=== PATIENT | male | born 1985 | race Caucasian/White ===

== ENCOUNTER → 2016-11-03 | Emergency (ER) | payer OTHER ==
[~2016-11-03] VITALS: Ht 172.7 cm; Wt 72.6 kg
[~2016-11-03] MED LIST: ACHD5005 PO; BACL10TA PO; CEPH500C PO; CYCL10TA9 PO; DOCU-165 PO; HDR4T PO; HYDR-2997 PO; HYDR-34; HYDR-757 PO; HYDR1TAB66 PO; IBP800T PO; IBUP-15; IBUP-1773 PO; IBUP-1780 PO; IBUP800T26 PO; LIDOCAINE/EPI 1%-1:100,000 (XYLOCAINE) 20ML INJ ONE; LIDOCAINE/EPI 1%-1:100,000 (XYLOCAINE) 20ML ONE; LOSA25TA5 PO; METO50TA7 PO; MRTZ30T1 PO; NAPR-243 PO; NAPR250T PO; ONDA4TAB8 PO; ONDAN4ODT PO; OXYC-109 PO; OXYC-12; OXYC-272 PO; PNT40TEC PO; POLY17PO23 PO; SIME180C20 PO; SULF1TAB35 PO; TRAM-21 PO; TRM50T PO; fLEXERIL
[2016-11-03 10:20] VITALS: BP 157/113
--- NOTE | 2016-11-03 10:30 | ED Upper Extremity ---
General Stated Complaint: LEFT THUMB LAC History of Present Illness Time seen by provider: 10:24 Initial Comments PT C/O LACERATION TO LEFT PALM STATES HE WAS WORKING ON HIS VEHICLE AND WRENCH SLIPPED AND HE CUT HIS HAND ON THE FAN OCCURRED AT HOME JUST PRIOR TO ARRIVAL NO PARESTHESIAS OR MOTOR DEFICITS PT IS RIGHT HANDED NO PRIOR INJURY TO LEFT HAND Allergies and Home Medications Allergies Coded Allergies: Penicillins (Unverified Allergy, Mild, 01/07/09) amoxicillin (Verified Allergy, Mild, 08/29/09) azithromycin (Unverified Allergy, Mild, 01/07/09) Uncoded Allergies: SILK TAPE (Allergy, Mild, HIVES, 01/28/10) Home Medications Hydrocodone/Acetaminophen 1 Each Tablet, 2 EACH PO Q4H PRN for PAIN, #20 Prescribed by: JARON BELL MD on 05/30/15 1714 Ibuprofen 600 Mg Tablet, 600 MG PO Q6H PRN for PAIN, #60 Prescribed by: ARY CARDENAS on 05/29/15 0900 Ibuprofen 800 Mg Tablet, 800 MG PO Q8H PRN for PAIN, #14 Prescribed by: JANNETTE BUCKLEY on 02/24/16 1634 Sulfamethoxazole/Trimethoprim 1 Each Tablet, 1 EACH PO BID, #14 Prescribed by: JANNETTE BUCKLEY on 02/24/16 1634 Sulfamethoxazole/Trimethoprim 1 Each Tablet, 1 EACH PO BID, #14 Ref 0 Prescribed by: SEE BOYER on 03/03/16 1614 Sulfamethoxazole/Trimethoprim 1 Each Tablet, 1 EACH PO BID, #20 Prescribed by: NOE BYA on 11/03/16 1121 [fLEXERIL] , 10 BID, #20 Prescribed by: ARY CARDENAS on 05/29/15 0900 Constitutional: no symptoms reported Musculoskeletal: see HPI Skin: see HPI Psychiatric/Neurological: No Symptoms Reported Past Jlhvesy-Vsajqt-Etampd Hx Patient Social History Alcohol Use: Occasionally Uses Recreational Drug Use: Yes (THC, METH USE IN PAST, DENIES IV USE) Smoking Status: Current Everyday Smoker (1/2 PPD) Recent Foreign Travel: No Contact w/Someone Who Travel: No Recent Hopitalizations: No Immunizations Up To Date Tetanus Booster (TDap): Less than 5yrs (03/03/16) Surgeries HX Surgeries: Yes (3 RIGHT SHOULDER AND 2 LEFT SHOULDER, [facility].HERNIA, DENTAL) Surgeries: Abdominal, Orthopedic Respiratory Hx Respiratory Disorders: No Cardiovascular Hx Cardiac Disorders: Yes Cardiac Disorders: Hypertension Neurological Hx Neurological Disorders: No Reproductive System Hx Reproductive Disorders: No Genitourinary Hx Genitourinary Disorders: Yes Genitourinary Disorders: Kidney Stones Gastrointestinal Hx Gastrointestinal Disorders: No Musculoskeletal Hx Musculoskeletal Disorders: Yes (LOOSE JOINTS) Endocrine Hx Endocrine Disorders: No HEENT HX ENT Disorders: No Cancer Hx Cancer: No Psychosocial Hx Psychiatric Problems: No Integumentary HX Skin/Integumentary Disorder: Yes (RASH ON BACK FOR OVER A YEAR) Blood Transfusions Hx Blood Disorders: No Family Medical History Significant Family History: No Pertinent Family Hx Family Medial History: FH: hemophilia G8 SISTER FH: lung cancer 19 MOTHER Hypertension 19 MOTHER G8 SISTER Raynaud's syndrome 19 FATHER Physical Exam Vital Signs Vital Sign - Last 12Hours 11/03/16 10:20 Temp 99.1 Pulse 70 Resp 16 B/P (MAP) 157/113 Pulse Ox 99 Capillary Refill : General Appearance: WD/WN, no apparent distress, other Hand: Left (LEFT PALM WITH 4 CM LACERATION , SLIGHTLY IRREGULAR. NO ACTIVE BLEEDING. MOTOR /SENSORY/VASCULAR INTACT. NO TENDON INVOLVEMENT), laceration Neurologic/Tendon: normal sensation, normal motor functions, normal tendon functions Neurologic/Psychiatric: heating and ventilating drafter II-XII nml as tested, no motor/sensory deficits, alert, normal mood/affect, oriented x 3 Skin: normal color, warm/dry, other ( ABOVE) Laceration Repair : Other Wound Location LEFT PALM Wound Length (cm): 4 Wound's Depth, Shape: irregular (SLIGHTLY), sub Q Wound Explored: contaminated (WITH DIRT, GREASE, GRIME) Betadine Prep?: No (BETASEPT, SALINE AND SURGICAL SCRUB SPONGES) Anesthesia: Lidocaine w/ Epi (1%) Suture: Ethlion Suture Size: 4-0 Number of Sutures: 7 Sterile Dressing Applied?: Yes Progress ALUMINUM FOAM VOLAR SPLINT APPLIED Progress/Results/Core Measures Results/Orders My Orders Orders - NOE BAY DO Lidocaine/Epi 1% 1:100,000 (Xylocaine /E (11/03/16 10:45) Lidocaine/Epi 1% 1:100,000 (Xylocaine /E (11/03/16 10:32) Splint Application Short Arm (11/03/16 11:21) Medications Given in ED Current Medications Medications Dose Ordered Sig/Chavez Route Start Time Stop Time Status Last Admin Dose Admin Lidocaine/ Epinephrine 20 ml ONCE ONCE INJ 11/03/16 10:45 11/03/16 10:46 DC 11/03/16 10:42 10 ML Vital Signs/I&O Vital Sign - Last 12Hours 11/03/16 10:20 Temp 99.1 Pulse 70 Resp 16 B/P (MAP) 157/113 Pulse Ox 99 Departure Impression Impression: Primary Impression: Laceration of left palm Disposition: HOME, SELF-CARE Condition: Stable Departure-Patient Inst. Referrals: [facility] (PCP/Family) Primary Care Physician Patient Instructions: Laceration Repair With Stitches (DC) Add. Discharge Instructions: LEAVE DRESSING IN PLACE FOR 24 HOURS, THEN CLEAN TWICE A DAY WITH ANTIBACTERIAL SOAP AND WATER ON A Q-TIP, APPLY FRESH DRESSING WEAR SPLINT AT ALL TIMES TYLENOL AND MOTRIN NEEDED FOR PAIN SUTURES OUT IN 10-14 DAYS--RETURN TO ER FOR REMOVAL Scripts Sulfamethoxazole/Trimethoprim (Bactrim Ds Tablet) 1 Each Tablet 1 EACH PO BID, #20 TAB Prov: NOE BAY DO 11/03/16 Images Extremities-Upper 1 - Laceration NOE BAY DO Nov 03, 2016 10:30
== END | disposition home or self-care (01) ==
LOC: EDUNIT# 10:20 → ER 10:22
DX: S61.412A Laceration without foreign body of left hand, initial encounter (principal); I10 Essential (primary) hypertension; F17.210 Nicotine dependence, cigarettes, uncomplicated; W22.8XXA Striking against or struck by other objects, initial encounter; Y92.015 Private garage of single-family (private) house as the place of occurrence of the external cause; Y99.8 Other external cause status
CPT/HCPCS: 12042

== ENCOUNTER 2016-11-17 12:13 | Emergency (ER) | payer OTHER ==
[~2016-11-17] VITALS: Ht 172.7 cm; Wt 72.6 kg
[~2016-11-17 12:13] MED LIST changes: -LIDOCAINE/EPI 1%-1:100,000 (XYLOCAINE) 20ML INJ ONE; -LIDOCAINE/EPI 1%-1:100,000 (XYLOCAINE) 20ML ONE
[2016-11-17 12:21] VITALS: BP 149/98
== END 2016-11-17 12:23 | disposition home or self-care (01) ==
LOC: EDUNIT# 12:13 → ER 12:16
DX: S61.412D Laceration without foreign body of left hand, subsequent encounter (principal)

== ENCOUNTER → 2017-01-24 | Outpatient (CLI) | payer OTHER ==
--- NOTE | 2017-01-24 09:28 | Diagnostic Imaging Report ---
PROCEDURE: MRI right joint upper extremity without contrast. TECHNIQUE: Multiplanar, multisequence MR imaging of the right shoulder was performed without contrast. COMPARISON: None available. INDICATION: Right shoulder pain with limited range of motion. Prior shoulder surgery. FINDINGS: Rotator cuff: No rotator cuff tear or muscle atrophy. No significant tendinopathy of the cuff musculature. Glenoid labrum: Surgical changes from prior superior labral repair with multiple suture anchors in the superior glenoid. There may be also be anchor tract within the anterior inferior glenoid rim. By non-arthrogram imaging, there is no displaced glenoid labral tear. However, postoperative labrum is much better evaluated by MR arthrogram. Long head of biceps: The long head of the biceps is normal in morphology and position. No tear or significant tendinopathy. Bones and cartilage: No fracture, stress fracture or osteonecrosis. No high-grade chondromalacia of the glenohumeral joint. The acromioclavicular joint is normal alignment without significant degenerative change. Soft tissues: No glenohumeral joint effusion. No MRI findings to suggest adhesive capsulitis. No subacromial/subdeltoid bursitis. IMPRESSION: 1. Prior glenoid labral repair. No recurrent displaced labral tear by non-arthrogram imaging. However, postoperative labrum is much better evaluated by MR arthrogram. 2. Normal rotator cuff. 3. Long head of biceps is also normal. Dictated by: Dictated on workstation # [id number]
== END ==
LOC: RAD 07:55
PROVIDERS: ATTEND Nurse Practitioner Family
DX: M25.511 Pain in right shoulder (principal)
CPT/HCPCS: 73221

== ENCOUNTER → 2017-10-20 | Outpatient (CLI) | payer OTHER ==
--- NOTE | 2017-10-20 15:36 | Diagnostic Imaging Report ---
INDICATION: Acute shoulder pain. COMPARISON: None. FINDINGS: Three views of right shoulder are obtained. No acute fracture, malalignment or osseous destructive process is seen. There is mild degenerative change of glenohumeral joint with joint space narrowing and spurring. There is mild subchondral cystic change and irregularity of the glenoid. Soft tissue calcification adjacent to the greater tuberosity probably related to calcific tendinitis. IMPRESSION: Mild degenerative changes of the glenohumeral joint with findings of calcific tendinitis. Dictated by: Dictated on workstation # [id number]
== END ==
LOC: RAD 14:24
PROVIDERS: ATTEND Nurse Practitioner Family
DX: M19.011 Primary osteoarthritis, right shoulder (principal); M75.91 Shoulder lesion, unspecified, right shoulder
CPT/HCPCS: 73030

== ENCOUNTER → 2017-11-07 | Outpatient (CLI) | payer OTHER ==
[~2017-11-07] VITALS: Ht 172.7 cm; Wt 72.6 kg
[~2017-11-07] MED LIST changes: +CATHETER FLUSH 10 ML SYR IVP PRN; +GADOBUTROL 7.5 MMOL/7.5 ML (GADAVIST) VIAL IV ONE; +IOHEXOL 300 MG/ML 30 ML (OMNIPAQUE 300) VIAL IV ONE; +LIDOCAINE 1% INJ 50 ML (XYLOCAINE) VIAL IJ ONE
[2017-11-07 12:58] VITALS: BP 131/81
[2017-11-07 13:55] VITALS: BP 119/71
--- NOTE | 2017-11-07 15:29 | Diagnostic Imaging Report ---
INDICATION: Right shoulder pain. TECHNIQUE: The patient was brought to the procedure room and placed on the table in the supine position. The skin of the right shoulder was prepped and draped in the usual sterile fashion. A small amount of 1% lidocaine was utilized for local anesthesia. A 22-gauge needle was advanced into the right shoulder at the rotator interval. A 15 mL solution of iodinated contrast, normal saline, and gadolinium was injected under fluoroscopic observation. The needle was withdrawn and hemostasis was obtained. A total of 25 seconds of fluoroscopic time was utilized. A preprocedure image does show a small well corticated osseous density adjacent to the greater tuberosity, likely owing to calcific tendinitis of the rotator cuff. No other abnormalities are seen. IMPRESSION: 1. Fluoroscopically assisted right shoulder injection of gadolinium contrast solution for MRI. 2. Findings are suggestive of calcific tendinitis of the rotator cuff. Dictated by: Dictated on workstation # [id number]
--- NOTE | 2017-11-07 15:32 | Diagnostic Imaging Report ---
MRI RT UPPER EXT JOINT WITH TECHNIQUE: Multiplanar, multisequence MR imaging of the right shoulder was performed after direct intra-articular contrast administration. COMPARISON: Non-arthrogram shoulder MRI from 01/24/2017. INDICATION: Right shoulder pain status post labral repair. FINDINGS: Rotator cuff: No rotator cuff tear or muscle atrophy. No evidence of denervation injury. Glenoid labrum: Glenohumeral joint is well distended with intra-articular contrast. There is a prior superior labral repair with an anchor present. Contrast undermines the superior labrum suggestive of a recurrent nondisplaced tear at the chondrolabral junction. Long head of biceps: Long head of biceps is normally positioned within the bicipital groove. The intracapsular segment is intact. Bones and cartilage: Humeral head is normal in morphology without fracture or focal osseous lesion. No glenohumeral chondromalacia. The acromioclavicular joint is normal in alignment without significant degenerative change. Soft tissues: No proliferative synovitis or loose bodies within the glenohumeral joint. No MRI findings to suggest adhesive capsulitis. No fluid or inflammatory like signal within the subacromial/subdeltoid space to indicate bursitis. IMPRESSION: 1. Recurrent nondisplaced superior labral tear at the chondrolabral junction. No paralabral cyst. 2. Long head of the biceps remains intact, and there is no propagation of the labral tear into the biceps anchor. 3. Normal rotator cuff. Dictated by: Dictated on workstation # [id number]
== END ==
LOC: RAD 12:56
PROVIDERS: ATTEND Orthopaedic Surgery
DX: S43.491A Other sprain of right shoulder joint, initial encounter (principal); M24.411 Recurrent dislocation, right shoulder; Z98.890 Other specified postprocedural states
CPT/HCPCS: 23350; 73040; 73222

== ENCOUNTER 2017-12-29 16:27 | Outpatient (RCR) | payer OTHER ==
[~2017-12-29 16:27] MED LIST changes: -CATHETER FLUSH 10 ML SYR IVP PRN; -GADOBUTROL 7.5 MMOL/7.5 ML (GADAVIST) VIAL IV ONE; -IOHEXOL 300 MG/ML 30 ML (OMNIPAQUE 300) VIAL IV ONE; -LIDOCAINE 1% INJ 50 ML (XYLOCAINE) VIAL IJ ONE
== END 2018-01-23 17:00 | disposition home or self-care (01) ==
PROVIDERS: ATTEND Orthopaedic Surgery
DX: S43.431D Superior glenoid labrum lesion of right shoulder, subsequent encounter (principal)

== ENCOUNTER → 2020-12-23 | Outpatient (CLI) | payer OTHER ==
[~2020-12-23] MED LIST changes: +HOLD METFORMIN - RECEIVED CONTRAST 20 ML VIAL IV SCH; +HYDR-4226 PO; -HYDR-757 PO; +IOHEXOL 350 MG/ML 100 ML (OMNIPAQUE 350) VIAL IV ONE; +NS 100 ML (IVPB) BAG IV ONE
--- NOTE | 2020-12-23 19:19 | Diagnostic Imaging Report ---
PROCEDURE: CT neck soft tissue with contrast. TECHNIQUE: Multiple contiguous axial images were obtained through the neck after the administration of contrast. Auto Exposure Controls were utilized during the CT exam to meet ALARA standards for radiation dose reduction. INDICATION: Lump left side of the neck and difficulty swallowing. No prior studies are available for comparison. Posterior nasopharynx and oropharynx are unremarkable. Parapharyngeal fat planes are unremarkable. Epiglottis and larynx are unremarkable. No thyroid masses are seen. Submandibular and parotid glands appear to be symmetric bilaterally. There are normal-sized jugulodigastric lymph nodes and posterior cervical chain lymph nodes. No definite pathologically enlarged lymph nodes are seen. There is no supraclavicular lymphadenopathy. Upper lung rodriguez appear clear. IMPRESSION: There are some normal-sized lymph nodes in the cervical chain bilaterally. No definite cervical lymphadenopathy is identified. Dictated by: Dictated on workstation # [id number]
== END ==
LOC: RAD 17:59
PROVIDERS: ATTEND Internal Medicine
DX: R59.0 Localized enlarged lymph nodes (principal)
CPT/HCPCS: 70491

== ENCOUNTER 2022-06-09 05:32 | Outpatient (CLI) | payer OTHER ==
[~2022-06-09] VITALS: Ht 172.7 cm; Wt 72.0 kg
[~2022-06-09 05:32] MED LIST changes: -HOLD METFORMIN - RECEIVED CONTRAST 20 ML VIAL IV SCH; -IOHEXOL 350 MG/ML 100 ML (OMNIPAQUE 350) VIAL IV ONE; -NS 100 ML (IVPB) BAG IV ONE; -SULF1TAB35 PO; +SULF1TAB38 PO
[2022-06-10] MEDS ORDERED: IBUP-1773 PO (12:54)
[2022-06-10] MEDS ORDERED: ACET325T38 PO (12:54)
[2022-06-10] MEDS ORDERED: LISI10TA25 PO (12:54)
== END 2022-06-10 12:58 | disposition home or self-care (01) ==
LOC: PREOP 05:32
PROVIDERS: ATTEND Surgery
DX: Z01.818 Encounter for other preprocedural examination (principal)

== ENCOUNTER 2022-06-16 05:56 | Day surgery (SDC) | payer OTHER ==
[2022-06-16] VITALS (10 sets, daily range): BP systolic 97–125; BP diastolic 64–90
[~2022-06-16] VITALS: Ht 172 cm; Wt 72.0 kg
[~2022-06-16 05:56] MED LIST changes: +ACET325T38 PO; +LISI10TA25 PO
[2022-06-16] MEDS ORDERED: CLINDAMYCIN 600 MG/50 ML IVPB 50 ML IV ONE (06:15)
[2022-06-16] MEDS: LACTATED RINGERS 1,000 ML IV PRN ×2 (06:28→08:54)
[2022-06-16] MEDS ORDERED: BUPIVACAINE 0.5% 30 ML (SENSORCAINE) VIAL ONE (07:04)
[2022-06-16] MEDS ORDERED: fentaNYL INJ 100 MCG/2 ML AMP ONE (07:35)
[2022-06-16] MEDS ORDERED: MIDAZOLAM 2 MG/2 ML (VERSED) VIAL ONE (07:35)
--- NOTE | 2022-06-16 08:24 | Progress Note-Pre Operative ---
Pre-Operative Progress Note Date of Available H&P: Jun 01, 2022 Date H&P Reviewed: Jun 16, 2022 Time H&P Reviewed: 08:21 History & Physical: H&P Reviewed, Patient Examed, No changes noted Pre-Operative Diagnosis: Left Inguinal hernia, possible right CELENA COHN DO Jun 16, 2022 08:23
[2022-06-16] MEDS ORDERED: LIDOCAINE PF 2% 5 ML (XYLOCAINE) VIAL ONE (09:23)
[2022-06-16] MEDS ORDERED: proPOfol 200 MG/20 ML (DIPRIVAN) VIAL IV ONE (09:23)
[2022-06-16] MEDS ORDERED: ROCURONIUM 10 MG/ML 5 ML SYRINGE IV ONE ×2 (09:23→09:49)
[2022-06-16] MEDS ORDERED: ONDANSETRON 4 MG/2 ML (SDV) Z0FRAN ONE (09:23)
[2022-06-16] MEDS ORDERED: NEOSTIGMINE (BLOXIVERZ ) 1 MG/1ML 10 ML VIAL ONE (09:49)
[2022-06-16] MEDS ORDERED: GLYCOPYRROLATE 0.2 MG/ML (ROBINUL) 2 ML VIAL ONE (09:49)
--- NOTE | 2022-06-16 09:57 | Progress Note-Post Operative ---
Post-Operative Progess Note Surgeon (s)/Hatchery Helper (s) Surgeon CELENA COHN DO Hatchery Helper: Bello Pre-Operative Diagnosis Left Inguinal hernia, possible right Post-Operative Diagnosis Left direct inguinal hernia Procedure & Operative Findings Date of Procedure 06/16/22 Procedure Performed/Findings Laparoscopic Left inguinal herniarrapy with mesh placement - Robotic After informed consent was obtained, the patient was brought to the operating room and placed on the operating table in a supine position. He was sterilely prepped and draped in a normal fashion. Local lidocaine was used to infiltrate the skin above the umbilicus. I made an incision with #11 blade, carried down to the skin into subcutaneous tissue and then deepened down the subcutaneous tissue with Bovie electrocautery down to the fascia. Fascia was incised with Bovie electrocautery and bluntly entered the abdomen, swept a finger around, placed 0 Vicryl hivujz-cl-dwoew suture and placed limited trocar port under direct visualization. Created pneumoperitoneum, able to visualize the hernia and took a picture of this and then placed two 8 mm ports about 10 cm on either side of the midline port using a local lidocaine, #11 blade for stab incision and then advanced the robotic port under direct visualization. Once this was in, I then placed the patient in Trendelenburg and then placed the working instruments, the fenestrated bipolar on the left and the scissors on the right. Looked on the left side and saw the direct inguinal hernia. Nothing seen on the right side. Next, I came across the peritoneum approximately 8 cm away from the hernia defect, going across laterally starting medial at the median umbilical ligament and cutting laterally toward the ASIS. I then carefully dissected the visceral peritoneum away and down in the midline, went through the parietal side and dissected down to the pubic tubercle, dissecting this down carefully pushing the peritoneum away, I was able to then visualize the pubic tubercle and Ankit's ligament. I went 2 cm posterior and at this point, we then had a critical view of the dissection, able to dissect 2 cm across the midline to the right side, 2 cm posterior to the Ankit's ligament, able to then parietalize the vas deferens and spermatic vessels right at the groove between Ankit's and iliac vein and able to dissect, make sure there was no peritoneum between those two, able to see the indirect hernia space, looked at the femoral space (no hernia seen) and took a picture. Then I carefully teased out the hernia sac from the direct hernia space. I could visualize the entire area and took another picture. Next I looked on the cord and cord structures. There was no cord lipoma. I could clearly see the inguinal canal and no real defect into the indirect space. Next I carried the posterior lateral dissection all the way out and then placed a 10 x 16 Midwieght Bard 3DMax mesh. It laid in nicely, covered the hernia defect and the rest of the area. It was above the peritoneum, sutured it at the pubic tubercle with a 3-0 Vicryl suture and tied this off. This appeared to lay in very nicely. I also tied one suture out laterally to hold it down. I then brought down the pneumoperitoneum to about 8 mm Hg and then started closing the peritoneum. Started medially and used a 2-0 V-lock barbed suture to start a running stitch to close the peritoneum. This was closed nicely, took a picture of the closure. There was a small hole in the peritoneum that I closed with a simple 3-0 Vicryl stitch. At this point, then removed all of the needles; had switched to a suture xm1 tank driver from the scissors. The patient was then placed back supine, removed all ports under direct visualization, allowed pneumoperitoneum to escape and then closed the supraumbilical incision, closing the fascia with 0 Vicryl suture previously placed. Copiously irrigated all incisions and then closed the two small 8 mm incisions with two interrupted 4-0 undyed Monocryl subcuticular stitches and closed the supraumbilical incision with three interrupted undyed Monocryl subcuticular stitch. Area was cleaned and dried. Dermabond was placed. The patient tolerated the procedure. The sponge, instrument and needle counts were correct at the end of the case. Dr. Monsalve assisted during this surgery by making incisions, closing incisions, helping to identify anatomy and passing/retrieving suture and needles. Anesthesia Type GET Estimated Blood Loss Estimated blood loss (mL): scant Specimens/Packing Specimens Removed none CELENA COHN DO Jun 16, 2022 09:57
[2022-06-16] MEDS ORDERED: ACHD5005 PO (09:58)
--- NOTE | 2022-06-16 09:59 | Discharge Inst-Surgical ---
Discharge Inst-Surgical Depart Medication/Instructions New, Converted or Re-Newed RX: Transmitted to Pharmacy Patient Instructions Follow up Appt: Make appointment for 1 week. [phone] Instructions: No lifting greater than 20 pounds. No strenuous activity. May shower in 24 hours, no tub bath or soaking. Use incentive spirometer at home as directed. No Smoking Skin/Wound Care: May remove bandages in am. You need to leave the Dermabond on incision it will fall off on it's own. Symptoms to Report: Appetite Changes, Extremity Discoloration, Numbness/Tingling, Swelling Increased, Bleeding Excessive, Eyesight Changes, Pain Increased, Urine Color Change, Constipation(Persistent), Fever over 101 degree F, Pain/Pressure in chest, Urinating Difficulty, Cough Up/Vomit Blood, Heart Beat Irreg/Pounding, Pain/Pressure in jaw, Cramps in feet or legs, Lightheadedness, Pain/Pressure in shoulder, Diarrhea(Persistent), Memory Changes Suddenly, Questions/Concerns, Weight gain consecutive days, Dizziness/Fainting, Nausea/Vomiting, Shortness of Breath, Weight gain over 2 pounds If questions or concerns contact your physician Or seek help at emergency department. Activity Activity as Tolerated: Yes Activity Instructions: Avoid Stress to Incision Driving Instructions: No Driving/Refer to Dr. Marquez Discharge Diet: No Restrictions Diet After 24 Hours: Clear Liquid if Nauseous If Any Problems/Questions/Issu: Contact Your Physician, Go to Emergency Room Skin/Wound Care Infection Signs and Symptoms: Increased Redness, Foul Odor of Wound, Increased Drainage, Skin Itchy or Has a Rash, Increased Swelling, Temperature Above 101 F Wound Care Comment: heating pad to shoulder or neck tonight for pain Bathing Instructions: Shower Stitches/Brodhead/Dermabond Dis: Dermabond Ice Pack: Ice On and Off Site CELENA COHN DO Jun 16, 2022 09:59
[2022-06-16] MEDS ORDERED: KETOROLAC 30 MG/ML VIAL ONE (10:00)
--- NOTE | 2022-06-16 10:09 | Anesthesia-General Post-Op ---
General Patient Condition Mental Status/LOC: Same as Preop Cardiovascular: Satisfactory Nausea/Vomiting: Absent Respiratory: Satisfactory Pain: Controlled Complications: Absent Post Op Complications Complications None Follow Up Care/Instructions Patient Instructions None needed. Anesthesia/Patient Condition Patient Condition Patient is doing well, no complaints, stable vital signs, no apparent adverse anesthesia problems. No complications reported per nursing. PAT JEFFREY CRNA Jun 16, 2022 10:09
[2022-06-16] MEDS ORDERED: fentaNYL INJ 100 MCG/2 ML AMP IVP ONE (10:15)
[2022-06-16] MEDS ORDERED: SEVOFLURANE (ULTANE) 15 ML INHAL SOLN ONE (10:15)
[2022-06-16] MEDS ORDERED: ONDANSETRON 4 MG/2 ML (SDV) Z0FRAN IVP PRN (10:15)
[2022-06-16] MEDS ORDERED: morphine INJ 10 MG/ML 1ML (SYR OR VIAL) IVP ONE (10:15)
[2022-06-16] MEDS ORDERED: HYDROcodone/APAP 5 MG/325 MG (LORTAB) TAB PO ONE (11:00)
[2022-06-16] MEDS ORDERED: HYDROcodone/APAP 5 MG/325 MG (LORTAB) TAB ONE (11:00)
== END 2022-06-16 11:50 | disposition home or self-care (01) ==
LOC: SDC 05:56
PROVIDERS: ATTEND Surgery
DX: K40.90 Unilateral inguinal hernia, without obstruction or gangrene, not specified as recurrent (principal)
CPT/HCPCS: 49650; 87081; C1781

== ENCOUNTER 2022-08-23 05:49 | Emergency (ER) | payer OTHER ==
--- NOTE | 2022-08-23 06:08 | ED Chest Pain ---
General Chief Complaint: Chest Wall Stated Complaint: RIGHT SIDE CHEST/BACK PAIN Source: patient Exam Limitations: no limitations (MAYANK EDWARDS MD) History of Present Illness Date Seen by Provider: Aug 23, 2022 Time Seen by Provider: 05:55 Initial Comments Patient is a 37-year-old male who presents to the emergency room with a chief complaint of right upper chest wall pain. Patient states he has had this pain continuously for about 2 weeks. It is worse when he takes a deep breath and more "sharp". He denies any associated symptoms of fevers, chills, congestion. No cough. No nausea vomiting or diarrhea. No diaphoresis associated. Movement also makes the pain a little worse. He has been taking ibuprofen and Tylenol. His last dose of Tylenol was yesterday evening at 8 PM 2 extra strength. No improvement. He has had multiple shoulder surgeries on each shoulder. He gets injections to his shoulders through Dr. VIGIL's office. No family history of coronary artery disease. He is a long-term smoker, 1 pack/day. He takes medication for hypertension. The pain does not radiate. It is not exacerbated by walking or exertion. It does radiate into his posterior right shoulder. Timing/Duration: other (2 weeks) Severity/Quality: sharp Location: other (right upper chest wall) Radiation: back (right shoulder) ASA po FINISH MENDER: No NTG SL FINISH MENDER: No Associated Symptoms: denies symptoms (MAYANK EDWARDS MD) Allergies and Home Medications Allergies Coded Allergies: Penicillins (Unverified Allergy, Mild, RASH, 06/10/22) amoxicillin (Verified Allergy, Mild, RASH, 06/10/22) azithromycin (Unverified Allergy, Mild, RASH, 06/10/22) Uncoded Allergies: SILK TAPE (Allergy, Mild, HIVES, 01/28/10) Patient Home Medication List Home Medication List Reviewed: Yes (MAYANK EDWARDS MD) Acetaminophen (Tylenol) Unknown Strength Tablet, Unknown Dose PO, (Reported) Entered as Reported by: LARRY FLORES on 06/10/22 1254 Hydrocodone Bit/Acetaminophen (HYDROcodone/APAP 5 MG/325 MG TAB) 1 Tab Tab, 1 T AB PO Q8H PRN for PAIN-MODERATE (5-7) Prescribed by: CELENA COHN on 06/16/22 0958 Ibuprofen (Ibuprofen) Unknown Strength Tablet, Unknown Dose PO Q6H PRN for PAIN- MILD, (Reported) Entered as Reported by: LARRY FLORES on 06/10/22 1254 Lisinopril (Lisinopril) 10 Mg Tablet, 10 MG PO DAILY, (Reported) Entered as Reported by: LARRY FLORES on 06/10/22 1254 Prednisone (Prednisone) 20 Mg Tab, 40 MG PO DAILY Prescribed by: SCOT LUND on 08/23/22 0720 Tramadol HCl (Tramadol HCl) 50 Mg Tablet, 50 MG PO Q6H PRN for PAIN-BREAKTHROUGH Prescribed by: SCOT LUND on 08/23/22 0720 Review of Systems Review of Systems Constitutional: see HPI EENTM: No Symptoms Reported Respiratory: No Symptoms Reported Cardiovascular: Chest Pain Gastrointestinal: No Symptoms Reported Genitourinary: No Symptoms Reported Musculoskeletal: joint pain (right shoulder) Skin: no symptoms reported Psychiatric/Neurological: No Symptoms Reported (MAYANK EDWARDS MD) All Other Systems Reviewed Negative Unless Noted: Yes (MAYANK EDWARDS MD) Past Sytavir-Wkzdet-Eextil Hx Patient Social History Tobacco Use?: Yes Tobacco type used: Cigarettes Smoking Status: Current Everyday Smoker Use of E-Cig and/or Vaping dev: No Substance use?: Yes Substance type: Marijuana Substance frequency: Couple times a week Alcohol Use?: No Pt feels they are or have been: No (MAYANK EDWARDS MD) Immunizations Up To Date Tetanus Booster (TDap): Less than 5yrs Influenza Vaccine Up-to-Date: No; Not Current (MAYANK EDWARDS MD) Seasonal Allergies Seasonal Allergies: No (MAYANK EDWARDS MD) Past Medical History Surgeries: Yes (3 RIGHT SHOULDER AND 2 LEFT SHOULDER, [facility].HERNIA, DENTAL) Abdominal, Appendectomy, Orthopedic Respiratory: No Cardiac: Yes Hypertension Neurological: No Reproductive Disorders: No Genitourinary: No Kidney Stones Gastrointestinal: Yes (HERNIA) Musculoskeletal: Yes (LOOSE JOINTS, SHOULDER ARTHRITIS) Arthritis Endocrine: No HEENT: No Cancer: No Psychosocial: No Integumentary: No Blood Disorders: No (MAYANK EDWARDS MD) Family Medical History FH: hemophilia G8 SISTER FH: lung cancer 19 MOTHER Hypertension 19 MOTHER G8 SISTER Raynaud's syndrome 19 FATHER No Pertinent Family Hx (MAYANK EDWARDS MD) Physical Exam Vital Signs Vital Signs - First Documented 08/23/22 05:55 Temp 36.3 Pulse 86 Resp 18 B/P (MAP) 146/88 (107) Pulse Ox 100 O2 Delivery Room Air (SCOT JHAVERI MD) Vital Signs Capillary Refill : (MAYANK EDWARDS MD) Height, Weight, BMI Height: 5'8.00" Weight: 160lbs. 0.0oz. 72.769043mj; 24.33 BMI Method:Stated General Appearance: No Apparent Distress, WD/WN, Thin HEENT: PERRL/EOMI Neck: Normal Inspection Respiratory: Lungs Clear, Normal Breath Sounds, No Accessory Muscle Use, No Respiratory Distress, Other (right upper chest) Cardiovascular: Regular Rate, Rhythm, Normal Peripheral Pulses Gastrointestinal: Non Tender, Soft Extremity: Normal Capillary Refill, Normal Inspection, Normal Range of Motion, Non Tender, No Calf Tenderness Neurologic/Psychiatric: Alert, Oriented x3, No Motor/Sensory Deficits, Normal Mood/Affect Skin: Normal Color, Warm/Dry (MAYANK EDWARDS MD) Procedures/Interventions Suture Size: 4-0 (MAYANK EDWARDS MD) Progress/Results/Core Measures Results/Orders Vital Signs/I&O 08/23/22 08/23/22 05:55 07:31 Temp 36.3 36.3 Pulse 86 80 Resp 18 18 B/P (MAP) 146/88 (107) 129/76 Pulse Ox 100 100 O2 Delivery Room Air Room Air (SCOT JHAVERI MD) Progress Progress Note : Time: 06:13 Progress Note re passed to Dr Jhaveri at shift change (MAYANK EDWARDS MD) Progress Note : Progress Note Care of this patient was assumed from Dr. Edwards at shift change. EKG was reviewed by me and found to be unremarkable. There were no ischemic changes or arrhythmias. Chest x-ray (2 views) was obtained and reviewed by me. By my interpretation there were no acute abnormalities. Specifically, there were no infiltrates and no evidence of a pneumothorax. X-ray report was not available at the time of dismissal but was later reviewed and was unremarkable as noted in report below. Discharge instructions were reviewed with the patient. Work note was provided. Pain appeared musculoskeletal in nature and was treated accordingly. Patient did not feel he was getting adequate pain control from Tylenol and ibuprofen. Treatment was augmented with prednisone and tramadol. See discharge instructions for further discussion. (SCOT JHAVERI MD) Initial ECG Impression Date: Aug 23, 2022 Initial ECG Impression Time: 06:09 Initial ECG Rate: 78 Initial ECG Rhythm: Normal Sinus Initial ECG Intervals: Normal Initial ECG Impression: Normal Comment Normal sinus rhythm with no ST elevation or depression. No abnormal intervals or axis deviation. 1 PAC noted. (SCOT JHAVERI MD) Diagnostic Imaging Diagonstic Imaging: Xray Plain Films/CT/US/NM/MRI: chest Comments NAME: RIKKI CHEEMA MED REC#: [id number] PT STATUS: DEP ER : 1985 PHYSICIAN: MAYANK EDWARDS MD ADMIT DATE: 08/23/22/ER Signed Date of Exam:08/23/22 CHEST PA/LAT (2 VIEW) INDICATION: Chest wall pain PA and lateral views of the chest are obtained. COMPARISON: No previous study is available for comparison at this time. FINDINGS: Heart size and pulmonary vasculature are within normal limits, and the lungs are clear, bilaterally. IMPRESSION: Unremarkable chest. Dictated by: Dictated on workstation # [id number] Dict: 08/23/22715 Trans: 08/23/22 0805 CV [id number] Interpreted by: LUISA CURRIE MD Electronically signed by: LUISA CURRIE MD 08/23/22 0805 (SCOT JHAVERI MD) Departure Impression Primary Impression: Chest wall pain Disposition: 01 HOME, SELF-CARE Condition: Stable Departure-Patient Inst. Decision time for Depature: 07:16 (SCOT JHAVERI MD) Referrals: ANA SPRINGER MD (PCP/Family) Primary Care Physician Patient Instructions: Chest Pain That Is Not Caused by the Heart (DC) Add. Discharge Instructions: Your chest pain appears to be musculoskeletal in nature. Try the prednisone as prescribed to reduce inflammation. Take prednisone early in the day to avoid sleep disturbance. Take prednisone with food or milk to avoid stomach upset. Use ibuprofen up to 600 mg every 6 hours as needed and Tylenol (acetaminophen) up to 1000 mg every 6 hours as needed for primary control of pain. Add to the Ultram (tramadol) as prescribed for additional pain relief if needed. Avoid unnecessary strenuous activities or movements. If pain has not significantly improved within 1 week, please follow-up with your primary care provider or orthopedic physician. Return to the emergency room if you have worsening symptoms despite following these instructions. All discharge instructions reviewed with patient and/or family. Voiced understanding. Scripts Tramadol HCl (Tramadol HCl) 50 Mg Tablet 50 MG PO Q6H PRN for PAIN-BREAKTHROUGH, #10 TAB Prov: SCOT JHAVERI MD 08/23/22 Prednisone (Prednisone) 20 Mg Tab 40 MG PO DAILY, #10 TAB 0 Refills Prov: SCOT JHAVERI MD 08/23/22 Work/School Note: Work Release Form Date Seen in the Emergency Department: Aug 23, 2022 Return to Work: Aug 24, 2022 Other Restrictions Listed Below: Gradually increase level of activity as pain allows. Copy Copies To 1: ANA SPRINGER MD Copies To 2: KRUNAL VIGIL MD, KATHRYN M MD Aug 23, 2022 06:08 SCOT JHAVERI MD Aug 23, 2022 07:21
--- NOTE | 2022-08-23 07:17 | Diagnostic Imaging Report ---
INDICATION: Chest wall pain PA and lateral views of the chest are obtained. COMPARISON: No previous study is available for comparison at this time. FINDINGS: Heart size and pulmonary vasculature are within normal limits, and the lungs are clear, bilaterally. IMPRESSION: Unremarkable chest. Dictated by: Dictated on workstation # [id number]
[2022-08-23] MEDS ORDERED: TRM50T PO (07:20)
[2022-08-23] MEDS ORDERED: PRD20T PO (07:20)
[2022-08-23 07:31] VITALS: BP 129/76
== END 2022-08-23 07:30 | disposition home or self-care (01) ==
LOC: EDUNIT# 05:49 → ER 05:52
DX: R07.89 Other chest pain (principal); I10 Essential (primary) hypertension; F17.210 Nicotine dependence, cigarettes, uncomplicated; Z28.310 Unvaccinated for COVID-19
CPT/HCPCS: 71046; 93005

== ENCOUNTER 2023-05-15 19:26 | Emergency (ER) | payer SELFPAY ==
[~2023-05-15] VITALS: Ht 175.2 cm; Wt 72.6 kg
[~2023-05-15 19:26] MED LIST changes: +PRD20T PO
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
[2023-05-15] MEDS ORDERED: Tetanus/Diphtheria/Pertussis (Acell) ADULT Vaccine 0.5 ML IM ONE (19:45)
[2023-05-15] MEDS ORDERED: HYDROcodone/ACETAMINOPHEN 5 MG/325 MG TABLET PO ONE (19:45)
[2023-05-15 20:06] VITALS: BP 139/96
== END 2023-05-15 20:06 | disposition home or self-care (01) ==
LOC: EDUNIT# 19:26 → ER 19:29
DX: T24.112A Burn of first degree of left thigh, initial encounter (principal); T23.121A Burn of first degree of single right finger (nail) except thumb, initial encounter; Z23 Encounter for immunization; X10.1XXA Contact with hot food, initial encounter
CPT/HCPCS: 90471; 90715; 99284